=== PATIENT | male | born 2000 | race Caucasian/White ===

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

== ENCOUNTER 2024-01-17 23:41 | Emergency (ER) | payer MEDICAID, SELFPAY ==
[2024-01-17 23:43] VITALS: BP 109/61; PULSE 110; RESP 20; TEMP 36.6; O2SAT 99; BMI 18.9
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
--- NOTE | 2024-01-18 00:25 | CTR_ITS ---
PROCEDURE INFORMATION: Exam: CTA Right Upper Extremity With Contrast Exam date and time: 01/18/2024 1:22 AM Age: 23 years old Clinical indication: Injury or trauma; Additional info: Forearm laceration with decreased distal pulses TECHNIQUE: Imaging protocol: Computed tomographic angiography of the right upper extremity with contrast, including non-contrast images if performed. 3D rendering (Not supervised by radiologist): MIP and/or 3D reconstructed images were created by the technologist. Radiation optimization: All CT scans at this facility use at least one of these dose optimization techniques: automated exposure control; mA and/or kV adjustment per patient size (includes targeted exams where dose is matched to clinical indication); or iterative reconstruction. Contrast material: OMNI 350; Contrast volume: 100 ml; Contrast route: INTRAVENOUS (IV); COMPARISON: CR XR hand RT min 3V* [id number] 02/19/2020 5:30 AM RADIATION DOSE METRICS: Total DLP (mGy-cm): 262.7 FINDINGS: Right subclavian artery: No acute findings. No occlusion or significant stenosis. Axillary artery: No acute findings. No occlusion or significant stenosis. Brachial artery: No acute findings. No occlusion or significant stenosis. Radial artery: The right radial artery origin and proximal segment are patent. There is abrupt occlusion in the midportion the artery with a long segment occlusion. There is distal reconstitution of flow at the wrist. Ulnar artery: The right ulnar artery is not seen in the forearm. Other arteries: Right interosseous artery patent unremarkable. Thyroid: Symmetric unremarkable thyroid lobes. Lungs: Included limited portions of lung parenchyma are clear. Soft tissues: Superficial soft tissue injuries on the ventral side of the mid forearm. No active bleeding identified. Other findings: Right maxillary sinus mucosal thickening and mucous retention cyst partially included in the field of [place]. CT/[place] [id number] IMPRESSION: 1. 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 2. The right ulnar artery is not seen of uncertain significance. Thrombosis not excluded. 3. Patent intraosseous artery.
[2024-01-18] MEDS: sodium chloride 0.9% 1,000 ML 999 ML IV (00:28)
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
[2024-01-18] MEDS: cefTRIAXone 1,000 MG in sodium chloride 0.9% (plus) 50 ML 100 MG IV (00:31)
[2024-01-18 00:39] LABS: Basophils % 0.2 %; Hematocrit 42.2 % (37-53); Lymphocytes % 9.3 %; Mean Corpuscular Hemoglobin 32.4 pg (27-33); Mean Corpuscular Volume 101.2 fl (82-101); Mean Platelet Volume 10.8 fL (7.4-10.4); Monocytes # 1.1 10^3/uL (0.2-0.9); Monocytes % 5.1 %; Neutrophils # 17.75 10^3/uL (1.8-7.7); Neutrophils % 84.8 %; Nucleated Red Blood Cells % 0 %; Platelet Count 204 10^3/cmm (157-399); Red Blood Count 4.17 10^6/uL (3.85-5.65); White Blood Count 20.93 10^3/uL (3.29-11.43)
[2024-01-18] MEDS: tetanus-dipt-pertussis 0.5 mL SDV IM (00:46)
[2024-01-18 01:03] LABS: Alanine Aminotransferase 16 U/L (0-41); Albumin Level 4.2 g/dL (3.5-5.2); Alkaline Phosphatase 71 U/L (40-130); Anion Gap 22.6 (5-19); Aspartate Amino Transferase 33 U/L (0-40); Blood Urea Nitrogen 8 mg/dL (6-20); Calcium 8.9 mg/dL (8.5-10.5); Carbon Dioxide 22 mmol/L (22-29); Chloride 102 mmol/L (98-107); Creatinine Clr Calc Pharmacy 132.1582; Globulin 2.8 g/dL (1.3-4.6); Glomerular Filtration Rate 105.5 mL/min (90-130); Glucose 157 mg/dL (65-115); Osmolality Calculated 298 mOsm/kg (285-295); Potassium 3.6 mmol/L (3.5-5.1); Sodium 143 mmol/L (136-145); Total Bilirubin 0.3 mg/dL (0.15-1.2)
[2024-01-18 01:08] VITALS: BP 121/71; PULSE 80; RESP 22; O2SAT 98
[2024-01-18] MEDS: iohexol 350 mg/mL 500 mL Btl (per mL) IV (01:28)
[2024-01-18 01:40] VITALS: BP 100/84; PULSE 87; RESP 18; O2SAT 94
[2024-01-18 02:00] VITALS: BP 103/62; PULSE 78; RESP 16; O2SAT 96
[2024-01-18 03:00] VITALS: BP 122/63; PULSE 84; RESP 16; O2SAT 97
--- NOTE | 2024-01-18 03:06 | PC.NURSE ---
@0007- Dr Hernandez at bedside. Per . Removal of pressure dressing to forearm. @0011- Dr Hernandez instructed to remove Tourniqet. Provider holding pressure to site with gauze at time. Assisted provider with doppler eval and irrigating the lac with sterile water x 2 bottles, 4x4s, gauze roll and coban reapplied for pressure. Per verbal order, do not reapply tourniqet unless bleeding through the dressing.
[2024-01-18 03:45] VITALS: RESP 16; O2SAT 95
== END 2024-01-18 03:46 | disposition short-term general hospital (02) ==
PROVIDERS: Emergency Provider Emergency Medicine
DX: S51.811A Laceration without foreign body of right forearm, initial encounter (principal); F19.10 Other psychoactive substance abuse, uncomplicated; W25.XXXA Contact with sharp glass, initial encounter; Z72.0 Tobacco use; Z23 Encounter for immunization
CPT/HCPCS: 73206; 80053; 85025; 86850; 86900; 90715; 96365; 96366; 99285; 99291; J0696; J7030; Q9967